=== PATIENT | male | born 1985 | race Native Hawaiian/Other Pacific Islander ===

== ENCOUNTER 2018-05-18 13:09 | Emergency (ER) | payer BC ==
[2018-05-18 13:11] VITALS: BMI 25.4
[2018-05-18 13:13] VITALS: TEMP 97.6
[2018-05-18] MEDS ORDERED: Propofol 10 mg/ml Inj (20 ML) IV ONE (13:23)
[2018-05-18] MEDS ORDERED: Propofol 10 mg/ml Inj (20 ML) ONE ×2 (13:30→13:34)
--- NOTE | 2018-05-18 14:08 | ED PDOC ---
Upper Extremity Pain/Injury Time Seen by Provider: 05/18/18 13:19 Chief Complaint (Nursing): Upper Extremity Problem/Injury History Per: Patient Onset/Duration Of Symptoms: Hrs (1) Current Symptoms Are (Timing): Still Present Severity: Moderate Pain Scale Rating Of: 5 Exacerbating Factor(s): Movement Additional Complaint(s): Pain and deformity to left shoulder while reaching for laptop. Unable to lower arm secondary to pain. Previous h/o left shoulder dislocation with self reduction Past Medical History Vital Signs: Last Vital Signs Temp 97.6 F 05/18/18 13:12 Pulse 76 05/18/18 13:58 Resp 20 05/18/18 13:58 BP 124/84 05/18/18 13:58 Pulse Ox 99 05/18/18 13:12 - Medical History PMH: No Chronic Diseases - Family History Family History: States: Unknown Family Hx - Home Medications Home Medications: Ambulatory Orders Medication Instructions Recorded RX: traMADol [Ultram] 50 mg PO Q8 #10 tab 05/18/18 - Allergies Allergies/Adverse Reactions: Allergies Allergy/AdvReac Type Severity Reaction Status Date / Time No Known Allergies Allergy Verified 05/18/18 13:13 Review of Systems Musculoskeletal: Positive for: Shoulder Pain Neurological: Negative for: Weakness, Numbness Physical Exam - Physical Exam Appears: Positive for: Non-toxic, Uncomfortable Skin: Positive for: Normal Color, Warm, DRY Cardiovascular/Chest: Positive for: Regular Rate, Rhythm Respiratory: Positive for: CNT, Normal Breath Sounds Pulses-Radial (L): 2+ Pulses-Radial (R): 2+ Extremity: Positive for: Other (Left shoulder inf and ant deformity) Neurologic/Psych: Positive for: Alert, Oriented. Negative for: Motor/Sensory Deficits - ECG O2 Sat by Pulse Oximetry: 99 - Progress Re-evaluation Time: 14:09 Condition: Improved (Post reduction radial pulse 2/4 bilat. No motor or sensory deficits. Awake alert oriented x 3 No focal neuro deficits) Procedures - Time-Out Type of Procedure: Left shoulder reduction Site of Procedure: Left shoulder Correct Patient: Yes Correct Procedure: Yes Physician Name: Nolan, reduction assissted by RYNE Eagle Anesthesiologist Name: Nolan - Joint Reduction Joint Reduction Site: shoulder (L) Conscious Sedation: Yes (Deep sedation with IV Propafol) Reduction Attempts: 1 Pre-Procedure NV Exam: Yes (Nl) Post Joint Reduction Film: no fracture seen Disposition - Clinical Impression Clinical Impression: Anterior shoulder dislocation - Patient ED Disposition Is Patient to be Admitted: Yes - Disposition Referrals: Tian Cole MD [Medical Doctor] - Disposition: Routine/Home Disposition Time: 15:07 Condition: FAIR Prescriptions: RX: traMADol [Ultram] 50 mg PO Q8 #10 tab Instructions: Shoulder Dislocation, General Anesthesia, Moderate Sedation in Adults Forms: [facility] (Kiswahili)
[2018-05-18 14:21] VITALS: RESP 18
[2018-05-18 14:44] VITALS: BP 118/85; PULSE 79
[2018-05-18 15:07] VITALS: O2SAT 99
--- NOTE | 2018-05-18 15:29 | RAD ---
Date of service: 05/18/2018 PROCEDURE: HISTORY: post reduction COMPARISON: Comparison is made with the 05/18/2018 study at 13:26 26 hr. Exam only included a single frontal view-attempted transscapular view. TECHNIQUE: Current study is a single frontal view appearing internally rotated. FINDINGS: No fracture is seen. The humeral head is estimated to be in the glenoid fossa per the available frontal view-however single frontal view is limited. Clinical correlation is essential in terms of patient's prior presentation regarding any dislocation. IMPRESSION: Limited exam. No gross dislocation appreciated on this exam. Consider additional imaging multiple views to better rule this in or ruled out.
--- NOTE | 2018-05-18 16:48 | RAD ---
Date of service: 05/18/2018 PROCEDURE: HISTORY: dislocation COMPARISON: None available TECHNIQUE: Single view-mix of a frontal and attempted transscapular FINDINGS: There is tubing along the left neck and left lateral chest-unclear if this is some type of shunt or extrinsic to the patient. Correlate clinically No gross fracture seen. IMPRESSION: Exam is especially limited in terms of assessing for any fracture or dislocations. No gross fracture appreciated. For this image I cannot appreciate any definite the dislocation anterior posterior-in this regards please correlate with physical exam.
== END 2018-05-18 14:15 | disposition home or self-care (01) ==
LOC: H.ER 13:09
DX: S43.005A Unspecified dislocation of left shoulder joint, initial encounter (principal); X50.9XXA Other and unspecified overexertion or strenuous movements or postures, initial encounter
CPT/HCPCS: 23650; 73020; 99284; J2704